=== PATIENT | female | born 1995 | race African-American/Black ===

== ENCOUNTER 2019-11-20 19:07 | Emergency (ER) | payer OTHER, SELFPAY ==
[2019-11-20 19:26] VITALS: BP 121/83; PULSE 100; RESP 16; O2SAT 98
--- NOTE | 2019-11-20 19:26 | ED.GENADULT ---
HPI - General Adult General Chief complaint: Nausea/Vomiting/Diarrhea Stated complaint: Diarrhea Time Seen by Provider: 11/20/19 19:26 Source: patient Mode of arrival: ambulatory Limitations: no limitations History of Present Illness HPI narrative: 24-year-old female patient presents to the [facility] with complaints of diarrhea x3 weeks. Patient denies any abdominal pain at this time. Denies any fevers, vomiting or nausea. Patient states she recently moved and states she does have a lot of nerve issues and thought that it might be due to that however she states that the diarrhea has lasted now for 3 weeks and describes her diarrhea as a watery green. Patient denies any history of diabetes. Patient denies any blood in her stool that she is aware of. Patient states she has gone about 8 times today. Patient states that she did take 1 dose of Imodium today but states it really did not help. Related Data Home Medications Medication Instructions Recorded Confirmed diphenhydramine HCl [Benadryl] 25 mg PO HS PRN 11/20/19 11/20/19 Allergies Allergy/AdvReac Type Severity Reaction Status Date / Time clavulanic acid Allergy Mild Verified 11/13/13 21:36 amoxicillin Allergy Unknown Verified 08/31/14 10:33 aripiprazole Allergy Unknown Verified 08/31/14 10:34 BETALACTAMASEIN Allergy Mild Uncoded 01/18/09 10:45 EGGS Allergy Uncoded 07/07/11 22:43 NUTS Allergy Uncoded 07/07/11 22:43 SHELLFISH Allergy Uncoded 11/13/13 21:36 Review of Systems Review of Systems: Narrative: CONSTITUTIONAL: Denies fever, chills, or sweats. EYES: Denies visual changes, redness, or discharge. ENT: Denies rhinorrhea, congestion, sore throat, or otalgia. CARDIOVASCULAR: Denies chest pain, palpitations, or edema. RESPIRATORY: Denies cough or dyspnea. GASTROINTESTINAL: Denies abdominal pain, nausea, vomiting, positive diarrhea. GENITOURINARY: Denies dysuria or hematuria. SKIN: Denies rash or itching. MUSCULOSKELETAL: Denies back pain, joint pain, or myalgia. NEUROLOGIC: Denies headache, numbness, or weakness. PSYCHIATRIC: Denies anxiety or depression. [facility] Social History Social History Smoking status: Never smoker Second hand tobacco smoke exposure: No Alcohol intake: never Comments At the time of my signature I agree with nursing past medical history, surgical, social, and family history. There is no relevant family history pertinent to the presenting complaint. Exam Narrative: Exam Narrative: GENERAL: Well-appearing, well-nourished, and in no acute distress. HEAD: Normocephalic, atraumatic. EYES: PERRLA and EOMI. ENT: Nares clear, no rhinorrhea or epistaxis. Mucous membranes moist. NECK: Supple. No lymphadenopathy CHEST: Clear to auscultation. No respiratory distress. HEART: Regular rate and rhythm. No murmur heard. Normal peripheral pulses. ABDOMEN: Soft, flat, nondistended. No guarding, rebound tenderness, or rigid. No pulsatilla masses. Bowel sounds present in all four quadrants. No organomegaly. Negative Donald?s sign. No periumbicial tenderness. No Supra public tenderness or distension. Good femoral pulses bilaterally. No hernia noted. No scars or surface trauma. EXTREMITIES: Normal range of motion. No edema. SKIN: Warm, dry, no rash. NEURO: No focal deficits. Alert and oriented x3. Course Vital Signs Vital signs: Vital Signs Pulse Rate 100 11/20/19 19:26 Respiratory Rate 16 11/20/19 19:26 Blood Pressure 121/83 11/20/19 19:26 Pulse Oximetry 98 11/20/19 19:26 Pulse Rate 100 11/20/19 19:26 Respiratory Rate 16 11/20/19 19:26 Blood Pressure 121/83 11/20/19 19:26 Pulse Oximetry 98 11/20/19 19:26 Vital signs reviewed. Medical Decision Making Differential Diagnosis Differential Diagnosis: Differential diagnosis: Appendicitis, ovarian torsion, gallbladder disease, ovarian torsion, pancreatitis, lower lobe pneumonia,AAA, AMI or ACS, DKA, divertic
== END 2019-11-20 19:47 | disposition home or self-care (01) ==
PROVIDERS: Emergency Provider Nurse Practitioner Family; PCP Family Medicine
DX: R19.7 Diarrhea, unspecified (principal)
CPT/HCPCS: 99211; G0463

== ENCOUNTER 2019-11-23 14:38 | Outpatient (CLI) | payer OTHER, SELFPAY ==
--- NOTE | ~2019-11-23 | XR_ITS ---
EXAMINATION: XR abdomen/kub 1V DATE: 11/23/2019 15:02 INDICATION: Diarrhea and unspecified abdominal pain. TECHNIQUE: A supine view of the abdomen on 2 radiographs was obtained. COMPARISON: None. FINDINGS: Moderate amount of stool and gas scattered throughout the colon. No dilated gas-filled loops of small bowel to suggest obstruction. No organomegaly. No suspicious calcific lesions in the abdomen or pelv is. Visualized lung bases are clear. Bones are unremarkable. IMPRESSION: 1. Normal bowel gas pattern with moderate amount of colonic gas and stool. Reviewed, dictated and finalized at location [facility]
[2019-11-23 15:29] LABS: Basophils Percent Auto 0.4 % (0.2-1.2); Eosinophils Absolute Auto 1.3 K/mm3 (0-0.3); Eosinophils Percent Auto 26.6 % (0-4.4); Hematocrit 41.7 % (37.0-47.0); Hemoglobin 13.5 g/dL (12.0-15.0); Immature Granulocyte Absolute 0.01 K/mm3 (0.00-0.031); Immature Granulocyte Percent A 0.2 % (0-0.5); Lymphocytes Absolute Auto 1.71 K/mm3 (0.9-3.2); Lymphocytes Percent Auto 34.7 % (18.3-44.2); Mean Corpuscular HGB Conc 32.4 g/dl (32-36); Mean Corpuscular Hemoglobin 28.8 pg (26-34); Mean Corpuscular Volume 88.9 fl (80-100); Monocytes Absolute Auto 0.5 K/mm3 (0.1-0.6); Monocytes Percent Auto 10.1 % (2.6-8.5); Neutrophils Absolute Auto 1.4 K/mm3 (1.3-6.7); Platelet Count Result 187 k/mm3 (150-375); Red Blood Count 4.69 M/mm3 (4.2-5.4); Red Cell Distribution Width 12.7 % (11.5-14.5); White Blood Count 4.9 K/mm3 (4.5-10.0)
[2019-11-23 15:37] LABS: Alanine Aminotransferase 13 U/L (4-35); Albumin Level 4.4 g/dL (3.5-5.1); Alkaline Phosphatase 50 U/L (38-126); Amylase 54 U/L (30-110); Aspartate Amino Transferase 23 U/L (14-36); Bilirubin,Total 0.3 mg/dL (0.2-1.3); Blood Urea Nitrogen 9 mg/dL (7-17); Calcium 9.2 mg/dL (8.4-10.2); Carbon Dioxide 22 mmol/L (22-30); Chloride 102 mmol/L (98-107); Estimated Glomerular Filt Rate > 60; Glucose 88 mg/dL (65-105); Lipase 47 U/L (23-300); Potassium 4.1 mmol/L (3.4-5.0); Sodium 137 mmol/L (137-145)
== END 2019-11-23 14:39 | disposition home or self-care (01) ==
PROVIDERS: PCP Family Medicine; Visit Provider Physician Assistant
DX: R10.9 Unspecified abdominal pain (principal); R19.7 Diarrhea, unspecified
CPT/HCPCS: 36415; 74018; 80053; 82150; 83690; 84443; 85025

== ENCOUNTER → 2022-06-14 02:14 | Outpatient (CLI) | payer OTHER, SELFPAY ==
[2022-06-14 10:44] LABS: SARS-CoV-2 RNA PCR Positive
== END ==
PROVIDERS: PCP Family Medicine; Visit Provider Physician Assistant
DX: U07.1 COVID-19 (principal)
CPT/HCPCS: C9803; U0003; U0005

== ENCOUNTER 2023-02-17 00:11 | Emergency (ER) | payer SELFPAY ==
--- NOTE | ~2023-02-17 | CT_ITS ---
Non-contrast Head CT History: Trauma Technique: Axial non-contrast imaging of the brain was performed. Dose reduction technique was used on this scan by utilizing automated exposure control and iterative reconstruction technique. The dose -length product (DLP) was 605.33 mGy-cm. Findings: There is no evidence of intracranial hemorrhage, mass lesion, or acute infarct. Brain par enchyma appears normal. The ventricles and subarachnoid spaces are normal in size. The calvarium ap pears normal. The visualized paranasal sinuses and mastoid air cells are clear. Impression: No significant abnormality seen. Reviewed, dictated and finalized at location . Impression: No significant abnormality seen.
--- NOTE | ~2023-02-17 | CT_ITS ---
CT Facial Bones and Cervical Spine Clinical Indication: Trauma Technique: Contiguous axial scans were obtained through the facial bones and cervical spine followed by coronal and sagittal reconstructions. Dose reduction technique was used on this scan by utilizing automated exposure control and iterative reconstruction technique. The dose-length product (DLP) was 213.75 mGy-cm. Findings: CT facial bones: No fractures are identified. The visualized paranasal sinuses are clear. Intraorbita l soft tissues appear normal. CT cervical spine: No fractures or subluxation. Unremarkable visualized bony structures. The interv ertebral disc spaces are preserved. No prevertebral soft tissue swelling. Impression: No fracture is seen in the facial bones. No fracture or subluxation of the cervical spine. Reviewed, dictated and finalized at location . Impression: No fracture is seen in the facial bones. No fracture or subluxation of the cervical spine.
[2023-02-17 00:15] VITALS: BP 135/85; PULSE 79; RESP 19; TEMP 36.6; O2SAT 100
--- NOTE | 2023-02-17 01:00 | ED.FALL ---
HPI - Fall General Chief Complaint: Fall Stated Complaint: ETOH, fall, head injury Time Seen by Provider: 02/17/23 00:50 History of Present Illness HPI Narrative: 28-year-old female reports for evaluation of a fall and head injury that occurred prior to arrival. Patient states approximately 3 hours ago she took 2-3 shots of rum and was sitting in a chair in her apartment alone. States she began leaning to the left in her chair and fell while sitting in the chair, hitting her head on the wall or ground next to her. She is unsure if she lost consciousness, states states if she did lose consciousness was only for half a second . She reports for a laceration above her left eyebrow, bleeding controlled. Denies headache, vision changes, focal numbness or weakness, difficulty ambulating. She denies other injuries acquired during the fall. Related Data Home Medications Medication Instructions Recorded Confirmed diphenhydramine HCl 25 mg capsule 25 mg PO HS PRN Allergy Symptoms 11/20/19 11/30/19 (Benadryl) Allergies Allergy/AdvReac Type Severity Reaction Status Date / Time clavulanic acid Allergy Mild Unknown Verified 02/17/23 00:24 amoxicillin Allergy Unknown stroke Verified 02/17/23 00:24 like sx aripiprazole Allergy Unknown Unknown Verified 02/17/23 00:24 BETALACTAMASEIN Allergy Mild Unknown Uncoded 02/17/23 00:24 NUTS Allergy Hives Uncoded 02/17/23 00:24 SHELLFISH Allergy Unknown Uncoded 02/17/23 00:24 Review of Systems Review of Systems: CONSTITUTIONAL: Denies fever, chills EYES: Denies visual changes, redness, or discharge. ENT: Denies rhinorrhea, congestion, sore throat, or otalgia. CARDIOVASCULAR: Denies chest pain, palpitations, or edema. RESPIRATORY: Denies cough or dyspnea. GASTROINTESTINAL: Denies abdominal pain, nausea, vomiting, or diarrhea. GENITOURINARY: Denies dysuria or hematuria. SKIN: Denies rash or itching. MUSCULOSKELETAL: Denies back pain, joint pain, or myalgia. NEUROLOGIC: See HPI PSYCHIATRIC: Denies anxiety or depression. [facility] Social History Social History Smoking status: Never smoker Second hand tobacco smoke exposure: No Alcohol intake: current Alcohol use details: rare Substance use: never Substance use type: does not use Living arrangements: with family Occupation/Education: occupation Gender identity (if verbalized by the patient): Female Exam Narrative: GENERAL: Appears intoxicated. She is pleasant and conversational. HEAD: 2 cm laceration above the left eyebrow with surrounding hematoma. Bleeding controlled. No other areas of trauma to the head. No raccoon eyes or valdez signs. EYES: PERRLA, EOMI ENT: Nares clear. Mucous membranes moist. Oropharynx without tonsillar hypertrophy exudate or other lesions. Bilateral TMs are reinoso and nonbulging. No hemotympanums. NECK: Supple. No midline cervical spine tenderness, step-offs or deformities. Full range of motion of neck. CHEST: No respiratory distress. Clear to auscultation, no adventitious breath sounds. No chest wall tenderness HEART: Regular rate and rhythm. No murmur heard. Normal peripheral pulses. ABDOMEN: Soft, nontender, normal active bowel sounds. EXTREMITIES: Normal range of motion. No edema. No tenderness to BUE or BLE SKIN: Warm, dry, no rash. NEURO: No focal deficits. Alert and oriented x3. Cranial nerves II through XII intact. Strength 5/5 to BUE and BLE. Radial pulses 2+. Sensation intact throughout. Ambulatory without ataxia. PSYCH: Normal mood and affect. Course Vital Signs Vital signs: Vital Signs Temperature 97.9 F 02/17/23 00:15 Pulse Rate 79 02/17/23 00:15 Respiratory Rate 19 02/17/23 00:15 Blood Pressure 135/85 02/17/23 00:15 Pulse Oximetry 100 02/17/23 00:15 Oxygen Delivery Room Air 02/17/23 00:15 Temperature 97.9 F 02/17/23 00:15 Pulse Rate 84 02/17/23 01:32 Respiratory R
[2023-02-17] MEDS: ACETAMINOPHEN 500 MG TABLET 1000 MG PO (01:24)
[2023-02-17] MEDS: TETANUS,DIPHTHERIA,AC PERTUSSIS ADULT (0.5 ML) BOOSTRIX IM (01:25)
[2023-02-17 01:32] VITALS: BP 123/81; PULSE 84; RESP 16; O2SAT 100
[2023-02-17 03:15] VITALS: BP 125/78; PULSE 85; RESP 18; O2SAT 100
== END 2023-02-17 03:16 | disposition home or self-care (01) ==
PROVIDERS: Emergency Provider Physician Assistant; PCP Family Medicine
DX: S01.112A Laceration without foreign body of left eyelid and periocular area, initial encounter (principal); W07.XXXA Fall from chair, initial encounter; Z23 Encounter for immunization
CPT/HCPCS: 12051; 70450; 70486; 72125; 90471; 90715; 99284; A9270